=== PATIENT | male | born 1945 | race Caucasian/White ===

== ENCOUNTER 2017-02-03 10:35 | Outpatient (CLI) | payer MEDICARE, BC ==
--- NOTE | 2017-02-03 11:41 | RAD ---
RIGHT HIP TWO VIEWS: History: Pain. Comparison: 06-22-16 FINDINGS: Contour of the femoral head is maintained. Joint spaces are preserved. No fracture or malalignment. IMPRESSION: Unremarkable right hip two views. POS: STACE[facility]
--- NOTE | 2017-02-03 12:58 | RAD ---
LEFT HIP: History: Pain. Comparison: None. FINDINGS: Two views of the left hip demonstrate a stable sclerotic focus involving the left femoral head when compared to a previous CT. Small focal bone island is suspected. Hip joint space is preserved. No fr acture. IMPRESSION: Left hip bone island. POS: STACEY
== END 2017-02-03 10:36 | disposition home or self-care (01) ==
LOC: TBSIIMAG 10:35
PROVIDERS: ATTEND Psychiatry & Neurology Neurology
DX: M25.551 Pain in right hip (principal); M86.8X8 Other osteomyelitis, other site

== ENCOUNTER 2018-11-29 13:57 | Emergency (ER) | payer MEDICARE, BC ==
--- NOTE | 2018-11-29 14:45 | RAD ---
EXAM: 2 views of the left forearm HISTORY: Forearm pain COMPARISON: None FINDINGS: There is no evidence of acute fracture or dislocation. No soft tissue swelling is seen. No degenerative changes are seen in the wrist or elbow. Surgical natalio are seen in the forearm. IMPRESSION: No evidence of acute osseous abnormality.
--- NOTE | 2018-11-29 14:46 | CT ---
EXAM: CT brain without contrast HISTORY: Fall from wheelchair onto left side with head trauma COMPARISON: None TECHNIQUE: Multiple contiguous axial images were obtained and a CT of the brain without contrast. FINDINGS: There are scattered hypodensities in the subcortical and periventricular white matter consi stent with small vessel ischemic disease. There is a left frontal approach ventriculostomy catheter with its tip in the left lateral ventricle. There is no evidence of hydrocephalus, intracranial hemor rhage, or extra-axial fluid collection. The calvarium and overlying soft tissues are unremarkable. The visualized paranasal sinuses and masto id air cells are well aerated. IMPRESSION: No evidence of acute intracranial abnormality
== END 2018-11-29 15:01 | disposition home or self-care (01) ==
LOC: SCSER 13:57
DX: S40.022A Contusion of left upper arm, initial encounter (principal); S00.93XA Contusion of unspecified part of head, initial encounter; Z86.73 Personal history of transient ischemic attack (TIA), and cerebral infarction without residual deficits; E78.2 Mixed hyperlipidemia; I10 Essential (primary) hypertension; Z79.899 Other long term (current) drug therapy; Z79.84 Long term (current) use of oral hypoglycemic drugs; W19.XXXA Unspecified fall, initial encounter
CPT/HCPCS: 70450; 87077; 87086

== ENCOUNTER 2020-01-02 07:24 | Day surgery (SDC) | payer MEDICARE, BC ==
[2019-12-29 11:08] VITALS: BMI 22.5
[2020-01-02] MEDS ORDERED: EPHEDRINE 25 MG/5 ML SYRINGE ONE (08:59)
[2020-01-02] MEDS ORDERED: PROPOFOL 200 MG/20 ML VIAL ONE (08:59)
[2020-01-02] MEDS ORDERED: Dexamethasone 20 MG/5 ML VIAL ONE (08:59)
[2020-01-02] MEDS ORDERED: Ondansetron PF 4 MG/2 ML Vial ONE (08:59)
[2020-01-02] MEDS ORDERED: Lidocaine 1% PF 5 ML VIAL ONE (08:59)
[2020-01-02] MEDS ORDERED: Fentanyl 100 MCG/2 ML VIAL ONE (09:29)
[2020-01-02] MEDS ORDERED: Bupivacaine PF 0.5% 30 ML VIAL ONE (10:00)
[2020-01-02] MEDS ORDERED: Bupivacaine 0.25% HCL 30 ML VIAL ONE (10:00)
[2020-01-02] MEDS ORDERED: Lidocaine 1% w/Epinephrine 1:100K 20 ML VIAL ONE (10:00)
[2020-01-02] MEDS ORDERED: Ketorolac Tromethamine 30 MG/ML VIAL ONE (10:37)
[2020-01-02] MEDS ORDERED: Phenazopyridine HCl 97.5 MG TABLET ONE (10:37)
[2020-01-02] MEDS ORDERED: Oxybutynin 5 MG TAB ONE (10:37)
--- NOTE | 2020-01-02 11:10 | OP ---
DATE OF PROCEDURE: 01/02/2020 PREOPERATIVE DIAGNOSIS: Urinary retention. POSTOPERATIVE DIAGNOSIS: Urinary retention. PROCEDURES PERFORMED: Cystoscopy with placement of suprapubic tube. ANESTHESIA: General. COMPLICATIONS: None. BLOOD LOSS: 10 to 20 mL. SPECIMEN: None. DESCRIPTION OF PROCEDURE: After informed consent, the patient was taken to the operating room, transferred to the table under his own power. Anesthesia was established. Time-out was performed, showing the correct patient, site, and procedure. Preoperative antibiotics were administered. He was prepped and draped in the lithotomy position I began by inserting the rigid cystoscope through the urethra noting a normal course and caliber of the urethra into the prostate, noting minimal lateral lobe obstruction with a very high bladder neck. The bladder was entered, noted to be cloudy with significant trabeculation, but no mucosal abnormalities on both 30 and 70 degree lens inspection. An appropriate site 2 fingerbreadths above the pubic symphysis was identified and infiltrated with lidocaine and Marcaine. A small stab incision was made and then the scope was removed. The Lowsley retractor was inserted through the urethra and used to tent up the bladder. The tip of the Lowsley was palpated and a small incision made over this, allowing the Lowsley to be passed into the suprapubic field. An 18-Amharic Sultana catheter was grasped with the Lowsley and retracted down into the bladder. 10 mL were instilled in the balloon. The Lowsley was removed and then the cystoscope reinserted noting good placement of the suprapubic tube into the anterior wall of the bladder with the balloon clearly visible in the bladder lumen. The incision site was closed around the catheter with chromic suture and then a nylon suture used for a drain stitch. The wound was dressed with gauze and tape, and the catheter connected to a leg bag. The patient was then awoken from anesthesia, transferred back to his hospital bed, and taken to PACU in stable condition, where he will discharge home upon recovery. Job ID: [id number]
[2020-01-02] MEDS ORDERED: hydrALAZINE 20 MG/ML VIAL ONE (11:26)
== END 2020-01-02 14:25 | disposition home or self-care (01) ==
LOC: SDC 07:24
PROVIDERS: ATTEND Urology
PROC: 0T9B00Z Drainage of Bladder with Drainage Device, Open Approach (ICD-10-PCS; principal; 2020-01-02)
PROC: 0TJB8ZZ Inspection of Bladder, Via Natural or Artificial Opening Endoscopic (ICD-10-PCS; 2020-01-02)
DX: I69.398 Other sequelae of cerebral infarction (principal); R33.8 Other retention of urine; N39.41 Urge incontinence; N32.89 Other specified disorders of bladder; N30.00 Acute cystitis without hematuria; E11.9 Type 2 diabetes mellitus without complications; I10 Essential (primary) hypertension; I25.10 Atherosclerotic heart disease of native coronary artery without angina pectoris; Z79.2 Long term (current) use of antibiotics; Z79.84 Long term (current) use of oral hypoglycemic drugs; Z79.899 Other long term (current) drug therapy; Z88.2 Allergy status to sulfonamides; Z95.1 Presence of aortocoronary bypass graft; Z95.5 Presence of coronary angioplasty implant and graft
CPT/HCPCS: J0360; J0690; J1100; J1885; J2405; J2704; J3010; S0020